=== PATIENT | male | born 1955 | race Caucasian/White ===

== ENCOUNTER → 2017-01-13 | Outpatient (CLI) | payer OTHER ==
[~2017-01-13] VITALS: Ht 185.4 cm; Wt 123.9 kg
[~2017-01-13] MED LIST: ALLO300T2 PO; AMLO5TAB2 PO; ATOR40TA16 PO; CHLORHEXIDINE GLUCONATE 2 % 1 PACK (2 CLOTHS) TOPICAL PRN; COUM5TAB PO; DEXTROSE 5%-LACTATED RING INJ 1,000 ML IV ONE; DEXTROSE 5%-LACTATED RING INJ 1,000 ML IV SCH; DILT1TAB4 PO; FENO145T2 PO; FERR325T8 PO; INSULIN HUMAN REGULAR 1,000 UNITS/10 ML VIAL SQ PRN; LACTATED RINGER'S 1000 ML IV PRN; LANS15CA PO; LIDOCAINE HCL 1% PF 5 ML AMPULE OTHER ONE; LOSA100T PO; METF1000 PO; METO50TA PO; METOPROLOL TARTRATE 25 MG TAB PO PRN; POVIDONE IODINE 5% (ANTISEPSIS KIT) 4 APPLICATIONS EACH NARE PRN; PROPOFOL 200 MG/20 ML AMP IV ONE; SODIUM CHLORID 0.9% 500 ML IV PRN
--- NOTE | 2017-01-13 11:36 | GIPROC ---
[facility] [address] [facility]. [facility], [address] EGD PROCEDURE REPORT EXAM DATE: 01/13/2017 PATIENT NAME: Marcio Matos MR #: [id number] BIRTHDATE: 1955 ATTENDING: Bernie Grissom MD ORDER #: [id number] FLIGHT TEST ENGINEER: Janelle Velez and Dacia Farah STATUS: outpatient INDICATIONS: The patient is a 61 yr old male here for an EGD due to fu duodenla bulb polyps anemia PROCEDURE PERFORMED: EGD, screening egd with APC ablation, EGD with polypectomy , EGD with clip applications MEDICATIONS: None and Per Anesthesia. TOPICAL ANESTHETIC: none CONSENT: The patient understands the risks and benefits of the procedure and understands that these risks include, but are not limited to: sedation, allergic reaction, infection, perforation and/or bleeding. Alternative means of evaluation and treatment include, among others: physical exam, x-rays, and/or surgical intervention. The patient elects to proceed with this endoscopic procedure. medical equipment was checked for proper function. Hand hygiene and appropriate measures for infection prevention was taken. After the risks, benefits and alternatives of the procedure were thoroughly explained, Informed consent was verified, confirmed and timeout was successfully executed by the treatment team. The patient was anesthetized with topical anesthesia and the Pentax EG-2990i endoscope was introduced through the mouth and advanced to the second portion of the duodenum. Retroflexed views revealed a hiatal hernia The gastroscope was then slowly withdrawn and removed. Gastric body polyps -hot snare polypectomy-5 removed-some removed with net large sessile polyp in duodenla bulb-hot snare polypectomy, piece meal removal, used net to remove pieces, 2 clips applied at polypectomy site nodular mucosa in duodenla bulb-s/p APC Mcdowell's esophagus hiatal hernia few small AVM's in atrum-s/p APC. ADVERSE EVENTS: There were no complications. IMPRESSIONS: 1. Gastric body polyps -hot snare polypectomy-5 removed-some removed with net large sessile polyp in duodenla bulb-hot snare polypectomy, piece meal removal, used net to remove pieces, 2 clips applied at polypectomy site nodular mucosa in duodenla bulb-s/p APC Mcdowell's esophagus hiatal hernia few small AVM's in atrum-s/p APC 2. Retroflexed views revealed a hiatal hernia RECOMMENDATIONS: 1. Await biopsy results. Biopsy results will not be ready for 7-10 days. If you don't hear from us in two weeks, call our office for biopsy results. 2. Anti-reflux regimen 3. Continue PPI 4. Avoid NSAIDS 5. Resume diet, Coumadin cbc PATIENT CONDITION: stable DISPOSITION: Home REPEAT EXAM: Return 8 weeks EGD with APC Bernie Grissom MD eSigned: Bernie Grissom MD 01/13/2017 11:36 AM cc: Chip Lopez M.D. PATIENT NAME: Marcio Matos MR#: [id number]
--- NOTE | 2017-01-13 11:36 | GIPROC ---
[facility] [address] [facility]. [facility], [address] EGD PROCEDURE REPORT EXAM DATE: 01/13/2017 PATIENT NAME: Marcio Matos MR #: [id number] BIRTHDATE: 1955 ATTENDING: Bernie Grissom MD ORDER #: [id number] SCREEN DOOR MAKER: Janelle Velez and Dacia Farah STATUS: outpatient INDICATIONS: The patient is a 61 yr old male here for an EGD due to fu duodenla bulb polyps anemia PROCEDURE PERFORMED: EGD, screening egd with APC ablation, EGD with polypectomy , EGD with clip applications MEDICATIONS: None and Per Anesthesia. TOPICAL ANESTHETIC: none CONSENT: The patient understands the risks and benefits of the procedure and understands that these risks include, but are not limited to: sedation, allergic reaction, infection, perforation and/or bleeding. Alternative means of evaluation and treatment include, among others: physical exam, x-rays, and/or surgical intervention. The patient elects to proceed with this endoscopic procedure. medical equipment was checked for proper function. Hand hygiene and appropriate measures for infection prevention was taken. After the risks, benefits and alternatives of the procedure were thoroughly explained, Informed consent was verified, confirmed and timeout was successfully executed by the treatment team. The patient was anesthetized with topical anesthesia and the Pentax EG-2990i endoscope was introduced through the mouth and advanced to the second portion of the duodenum. Retroflexed views revealed a hiatal hernia The gastroscope was then slowly withdrawn and removed. Gastric body polyps -hot snare polypectomy-5 removed-some removed with net large sessile polyp in duodenla bulb-hot snare polypectomy, piece meal removal, used net to remove pieces, 2 clips applied at polypectomy site nodular mucosa in duodenla bulb-s/p APC Mcdowell's esophagus hiatal hernia few small AVM's in atrum-s/p APC. ADVERSE EVENTS: There were no complications. IMPRESSIONS: 1. Gastric body polyps -hot snare polypectomy-5 removed-some removed with net large sessile polyp in duodenla bulb-hot snare polypectomy, piece meal removal, used net to remove pieces, 2 clips applied at polypectomy site nodular mucosa in duodenla bulb-s/p APC Mcdowell's esophagus hiatal hernia few small AVM's in atrum-s/p APC 2. Retroflexed views revealed a hiatal hernia RECOMMENDATIONS: 1. Await biopsy results. Biopsy results will not be ready for 7-10 days. If you don't hear from us in two weeks, call our office for biopsy results. 2. Anti-reflux regimen 3. Continue PPI 4. Avoid NSAIDS 5. Resume diet, Coumadin cbc PATIENT CONDITION: stable DISPOSITION: Home REPEAT EXAM: Return 8 weeks EGD with APC Bernie Grissom MD eSigned: Bernie Grissom MD 01/13/2017 11:36 AM cc: Chip Lopez M.D. PATIENT NAME: Marcio Matos MR#: [id number]
--- NOTE | 2017-01-13 11:36 | GIPROC ---
[facility] [address] [facility]. [facility], [address] EGD PROCEDURE REPORT EXAM DATE: 01/13/2017 PATIENT NAME: Marcio Matos MR #: [id number] BIRTHDATE: 1955 ATTENDING: Bernie Grissom MD ORDER #: [id number] AUTOMATIC EDGER: Janelle Velez and Dacia Farah STATUS: outpatient INDICATIONS: The patient is a 61 yr old male here for an EGD due to fu duodenla bulb polyps anemia PROCEDURE PERFORMED: EGD, screening egd with APC ablation, EGD with polypectomy , EGD with clip applications MEDICATIONS: None and Per Anesthesia. TOPICAL ANESTHETIC: none CONSENT: The patient understands the risks and benefits of the procedure and understands that these risks include, but are not limited to: sedation, allergic reaction, infection, perforation and/or bleeding. Alternative means of evaluation and treatment include, among others: physical exam, x-rays, and/or surgical intervention. The patient elects to proceed with this endoscopic procedure. medical equipment was checked for proper function. Hand hygiene and appropriate measures for infection prevention was taken. After the risks, benefits and alternatives of the procedure were thoroughly explained, Informed consent was verified, confirmed and timeout was successfully executed by the treatment team. The patient was anesthetized with topical anesthesia and the Pentax EG-[id number] endoscope was introduced through the mouth and advanced to the second portion of the duodenum. Retroflexed views revealed a hiatal hernia The gastroscope was then slowly withdrawn and removed. Gastric body polyps -hot snare polypectomy-5 removed-some removed with net large sessile polyp in duodenla bulb-hot snare polypectomy, piece meal removal, used net to remove pieces, 2 clips applied at polypectomy site nodular mucosa in duodenla bulb-s/p APC Mcdowell's esophagus hiatal hernia few small AVM's in atrum-s/p APC. ADVERSE EVENTS: There were no complications. IMPRESSIONS: 1. Gastric body polyps -hot snare polypectomy-5 removed-some removed with net large sessile polyp in duodenla bulb-hot snare polypectomy, piece meal removal, used net to remove pieces, 2 clips applied at polypectomy site nodular mucosa in duodenla bulb-s/p APC Mcdowell's esophagus hiatal hernia few small AVM's in atrum-s/p APC 2. Retroflexed views revealed a hiatal hernia RECOMMENDATIONS: 1. Await biopsy results. Biopsy results will not be ready for 7-10 days. If you don't hear from us in two weeks, call our office for biopsy results. 2. Anti-reflux regimen 3. Continue PPI 4. Avoid NSAIDS 5. Resume diet, Coumadin cbc PATIENT CONDITION: stable DISPOSITION: Home REPEAT EXAM: Return 8 weeks EGD with APC Bernie Grissom MD eSigned: Bernie Grissom MD 01/13/2017 11:36 AM cc: Chip Lopez M.D. PATIENT NAME: Marcio Matos MR#: [id number]
[2017-01-13 12:05] VITALS: BP 112/69; PULSE 65; RESP 18; TEMP 97; O2SAT 96
--- NOTE | 2017-01-13 15:12 | EKG ---
Date Performed: 01/13/2017 Time Performed: 09:38:56 PTAGE: 61 years EKG: Sinus rhythm LBBB ABNORMAL ECG NO PREVIOUS TRACING DOCTOR: Sue Ocampo Interpretating Date/Time 01/13/2017 15:12:29
--- NOTE | 2017-01-13 15:12 | EKG ---
Date Performed: 01/13/2017 Time Performed: 09:38:56 PTAGE: 61 years EKG: Sinus rhythm LBBB ABNORMAL ECG NO PREVIOUS TRACING DOCTOR: Sue Ocampo Interpretating Date/Time 01/13/2017 15:12:29
--- NOTE | 2017-01-13 15:12 | EKG ---
Date Performed: 01/13/2017 Time Performed: 09:38:56 PTAGE: 61 years EKG: Sinus rhythm LBBB ABNORMAL ECG NO PREVIOUS TRACING DOCTOR: Sue Ocampo Interpretating Date/Time 01/13/2017 15:12:29
== END ==
LOC: HSDC 08:54
PROVIDERS: ATTEND Internal Medicine Gastroenterology
DX: K31.7 Polyp of stomach and duodenum (principal); I44.7 Left bundle-branch block, unspecified; K44.9 Diaphragmatic hernia without obstruction or gangrene; K31.819 Angiodysplasia of stomach and duodenum without bleeding; D64.9 Anemia, unspecified
CPT/HCPCS: 88305; 93005